=== PATIENT | female | born 1995 | race Caucasian/White ===

== ENCOUNTER 2018-02-07 08:31 | Emergency (ER) | payer BC ==
[2018-02-07 08:54] VITALS: BP 117/73
--- NOTE | 2018-02-07 09:14 | UC ---
Throat Pain/Nasal Sameer HPI - HPI Summary HPI Summary: sore throat x 1 day no fever, + chills, + swollen neck glands no cough , no nasal congestion - History of Current Complaint Chief Complaint: UCGeneralIllness Stated Complaint: FEVER, SORE THROAT Time Seen by Provider: 02/07/18 08:57 Hx Obtained From: Patient Hx Last Menstrual Period: 01/25/18 ?: No Onset/Duration: Gradual Onset, Lasting Days - 1, Still Present Severity: Moderate Pain Intensity: 2 Cough: None Associated Signs & Symptoms: Negative: Dysphagia, FB Sensation, Drooling, Wheezing, Hoarseness, Sinus Discomfort, Nasal Discharge, Fever, Vomiting, Rash - Allergies/Home Medications Allergies/Adverse Reactions: Allergies Allergy/AdvReac Type Severity Reaction Status Date / Time No Known Allergies Allergy Verified 02/07/18 08:48 Home Medications: Home Medications Acetaminophen [Tylenol Extra Strength] 500 mg PO ONCE 02/07/18 [History Confirmed 02/07/18] Escitalopram Oxalate [Lexapro] 20 mg PO DAILY 02/07/18 [History Confirmed ] PMH/Surg Hx/FS Hx/Imm Hx Previously Healthy: Yes - Surgical History Surgical History: Yes Surgery Procedure, Year, and Place: Skin graft on ear x2 - Family History Known Family History: Negative: Diabetes - Social History Alcohol Use: Occasionally Substance Use Type: None Smoking Status (MU): Light Every Day Tobacco Smoker Type: Cigarettes Amount Used/How Often: social Review of Systems All Other Systems Reviewed And Are Negative: Yes Constitutional: Positive: Negative Skin: Positive: Negative Eyes: Positive: Negative ENT: Positive: Sore Throat Respiratory: Positive: Negative Is Patient Immunocompromised?: No Physical Exam Triage Information Reviewed: Yes Appearance: Well-Appearing, No Pain Distress, Well-Nourished Vital Signs: Initial Vital Signs Temp 98.2 F 02/07/18 08:48 Pulse 69 02/07/18 08:48 Resp 15 02/07/18 08:48 BP 117/73 02/07/18 08:48 Pulse Ox 99 02/07/18 08:48 Vital Signs Reviewed: Yes Eye Exam: Normal Eyes: Positive: Conjunctiva Clear ENT: Positive: Normal ENT inspection, Hearing grossly normal, Pharyngeal erythema, TMs normal. Negative: TM bulging, TM dull, TM red Neck: Positive: Supple, Tenderness @, Enlarged Nodes @ Respiratory: Positive: Chest non-tender, Lungs clear, Normal breath sounds Cardiovascular: Positive: RRR, No Murmur, Pulses Normal Skin Exam: Normal Throat Pain/Nasal Course/Dx - Differential Dx/Diagnosis Provider Diagnosis: Viral pharyngitis Discharge - Sign-Out/Discharge Documenting (check all that apply): Patient Departure All imaging exams completed and their final reports reviewed: No Studies - Discharge Plan Condition: Stable Disposition: HOME Patient Education Materials: Pharyngitis (ED) Referrals: Rajeev Bailey MD [Primary Care Provider] - If Needed Additional Instructions: viral sore throat, negative rapid strep no need for antibiotics - Billing Disposition and Condition Condition: STABLE Disposition: Home
== END 2018-02-07 09:20 | disposition home or self-care (01) ==
LOC: UCCORT 08:31
DX: J02.8 Acute pharyngitis due to other specified organisms (principal); F17.210 Nicotine dependence, cigarettes, uncomplicated
CPT/HCPCS: 87651; 99212; G0463

== ENCOUNTER 2018-02-08 16:40 | Emergency (ER) | payer BC ==
[2018-02-08 17:00] VITALS: BP 116/75
--- NOTE | 2018-02-08 17:17 | UC ---
Throat Pain/Nasal Sameer HPI - HPI Summary HPI Summary: The patient is a 22-year-old female that presents here with a sore throat which has been worsening over the past 24 hours. Rest friend was just diagnosed with strep. He has felt feverish. She has had nausea but no vomiting. She has had headache and muscle aches. She was seen here yesterday and had a negative rapid strep. has had mono - History of Current Complaint Chief Complaint: UCGeneralIllness Stated Complaint: RECHECK SORE THROAT Time Seen by Provider: 02/08/18 17:10 Hx Obtained From: Patient Hx Last Menstrual Period: 01/25/18 Onset/Duration: Gradual Onset, Lasting Hours Severity: Moderate Pain Intensity: 8 Pain Scale Used: 0-10 Numeric Cough: None Associated Signs & Symptoms: Positive: Fever - Epiglottits Risk Factors Epiglottis Risk Factors: Negative - Allergies/Home Medications Allergies/Adverse Reactions: Allergies Allergy/AdvReac Type Severity Reaction Status Date / Time No Known Allergies Allergy Verified 02/08/18 17:00 PMH/Surg Hx/FS Hx/Imm Hx Previously Healthy: Yes - Surgical History Surgical History: Yes Surgery Procedure, Year, and Place: Skin graft on ear x2 - Family History Known Family History: Negative: Diabetes - Social History Alcohol Use: Occasionally Substance Use Type: None Smoking Status (MU): Light Every Day Tobacco Smoker Type: Cigarettes Amount Used/How Often: social Review of Systems All Other Systems Reviewed And Are Negative: Yes Constitutional: Positive: Fever, Chills Skin: Positive: Negative Eyes: Positive: Negative ENT: Positive: Sore Throat Respiratory: Positive: Negative Cardiovascular: Positive: Negative Gastrointestinal: Positive: Negative Genitourinary: Positive: Negative Motor: Positive: Negative Neurovascular: Positive: Negative Musculoskeletal: Positive: Myalgia Neurological: Positive: Negative Psychological: Positive: Negative Physical Exam Triage Information Reviewed: Yes Appearance: Well-Appearing, No Pain Distress, Well-Nourished Vital Signs: Initial Vital Signs Temp 97.5 F 02/08/18 16:57 Pulse 96 02/08/18 16:57 Resp 16 02/08/18 16:57 BP 116/75 02/08/18 16:57 Pulse Ox 100 02/08/18 16:57 Vital Signs Reviewed: Yes Eyes: Positive: Conjunctiva Clear ENT: Positive: Hearing grossly normal, Tonsillar swelling, Tonsillar exudate, Uvula midline. Negative: Nasal congestion, Nasal drainage, Trismus, Muffled voice, Hoarse voice Neck: Positive: Supple, Nontender, Enlarged Nodes @ - ant cervical Respiratory: Positive: Lungs clear, Normal breath sounds, No respiratory distress, No accessory muscle use Cardiovascular: Positive: RRR, No Murmur Abdomen Description: Positive: Nontender, No Organomegaly. Negative: Bruit, CVA Tenderness (R), CVA Tenderness (L), Hepatomegaly, Splenomegaly Musculoskeletal: Positive: ROM Intact, No Edema Neurological: Positive: Alert Skin Exam: Normal Throat Pain/Nasal Course/Dx - Differential Dx/Diagnosis Provider Diagnosis: Exudative tonsillitis Discharge - Sign-Out/Discharge Documenting (check all that apply): Patient Departure All imaging exams completed and their final reports reviewed: No Studies - Discharge Plan Condition: Stable Disposition: HOME Prescriptions: Cephalexin CAP* [Keflex CAP*] 500 mg PO BID #20 cap Patient Education Materials: Tonsillitis (ED) Forms: *Work Release Referrals: Rajeev Bailey MD [Primary Care Provider] - Additional Instructions: recheck in 3 days if not better - Billing Disposition and Condition Condition: STABLE Disposition: Home
--- NOTE | 2018-02-12 07:09 | UC ---
- Progress Note Progress Note: Notify patient she has Group C strep tonsillitis needs to finish antibiotics Course/Dx - Diagnoses Provider Diagnoses: Exudative tonsillitis Discharge - Sign-Out/Discharge Documenting (check all that apply): Post-Discharge Follow Up All imaging exams completed and their final reports reviewed: No Studies - Discharge Plan Condition: Stable Disposition: HOME Prescriptions: Cephalexin CAP* [Keflex CAP*] 500 mg PO BID #20 cap Patient Education Materials: Tonsillitis (ED) Forms: *Work Release Referrals: Rajeev Bailey MD [Primary Care Provider] - Additional Instructions: recheck in 3 days if not better - Billing Disposition and Condition Condition: STABLE Disposition: Home
== END 2018-02-08 17:24 | disposition home or self-care (01) ==
LOC: UCCORT 16:40
DX: J03.90 Acute tonsillitis, unspecified (principal); F17.210 Nicotine dependence, cigarettes, uncomplicated
CPT/HCPCS: 87070; 87077; 99212; G0463